=== PATIENT | female | born 1995 | race Caucasian/White ===

== ENCOUNTER 2019-04-22 20:27 | Emergency (ER) | payer MEDICAID ==
[2019-04-22 22:10] LABS: ALANINE AMINOTRANSFERASE 12 U/L (9-52); ALBUMIN 4.3 g/dL (3.5-5.0); ALKALINE PHOSPHATASE 43 U/L (38-126); ANION GAP 11 (5-19); ASPARTATE AMINO TRANSFERASE 19 U/L (14-36); BILIRUBIN,DIRECT 0.1 mg/dL (0.0-0.4); BILIRUBIN,TOTAL 1.4 mg/dL (0.2-1.3); BLOOD UREA NITROGEN 11 mg/dL (7-20); CALCIUM 10.1 mg/dL (8.4-10.2); CARBON DIOXIDE 23 mmol/L (22-30); CHLORIDE 102 mmol/L (98-107); GLUCOSE 114 mg/dL (75-110); POTASSIUM 3.6 mmol/L (3.6-5.0); SODIUM 135.6 mmol/L (137-145); TOTAL PROTEIN 7.9 g/dL (6.3-8.2)
[2019-04-22 22:22] LABS: APPEARANCE,URINE SLIGHTLY-CLOUDY; BILIRUBIN,URINE NEGATIVE (NEGATIVE); COLOR,URINE AMBER; GLUCOSE, URINE NEGATIVE (NEGATIVE); KETONES,URINE 80 mg/dL (NEGATIVE); LEUKOCYTE ESTERASE,URINE TRACE (NEGATIVE); NITRITE,URINE NEGATIVE (NEGATIVE); PROTEIN,URINE 30 mg/dL (NEGATIVE); URINE SPECIFIC GRAVITY 1.034
[2019-04-22 22:32] LABS: ABSOLUTE EOSINOPHILS # (AUTO) 0.1 10^3/uL (0.0-0.6); ABSOLUTE LYMPHOCYTES (AUTO) 1.5 10^3/uL (0.5-4.7); ABSOLUTE MONOCYTES (AUTO) 0.3 10^3/uL (0.1-1.4); ABSOLUTE NEUT (AUTO) 4.6 10^3/uL (1.7-8.2); BASOPHILS % (AUTO) 0.3 % (0-2); EOSINOPHILS % (AUTO) 1.6 % (0-6); HEMOGLOBIN 13.3 g/dL (12.0-15.5); LYMPHOCYTES % (AUTO) 23.3 % (13-45); MEAN CORPUSCULAR HEMOGLOBIN 28.7 pg (27.0-33.4); MEAN CORPUSCULAR VOLUME 82 fl (80-97); MONOCYTES % (AUTO) 4.5 % (3-13); PLATELET COUNT 195 10^3/uL (150-450); RED BLOOD COUNT 4.64 10^6/uL (3.72-5.28); RED CELL DISTRIBUTION WIDTH 13.5 % (11.5-14.0); SEGMENTED NEUTROPHILS % (AUTO) 70.3 % (42-78); TOTAL CELLS COUNTED % (AUTO) 100 %; WHITE BLOOD COUNT 6.5 10^3/uL (4.0-10.5)
[2019-04-23] MEDS ORDERED: ONDANSETRON HCL INJ/PF 4 MG/2 ML SDV IV ONE (02:10)
[2019-04-23 02:25] VITALS: BP 97/67
--- NOTE | 2019-04-23 06:03 | ER Document Report ---
Entered by JASPER WHATLEY SCRIBE 04/23/19 0215 Acting as scribe for:JEANE BHARDWAJ DO ED General - General Chief Complaint: Nausea/Vomiting/Diarrhea Stated Complaint: VOMITING Time Seen by Provider: 04/23/19 01:21 Mode of Arrival: Ambulatory Information source: Patient Notes: Patient is a 23-year-old female, approximately 10 weeks , presents to the emergency department complaining of nausea, vomiting and diarrhea onset 2 days ago. Patient states her primary concern is her nausea, further stating she has not been able to consume much food. She denies any fevers, hematemesis, blood in stool, abdominal pain, vaginal bleeding or vaginal discharge. Patient is G4, P3. TRAVEL OUTSIDE OF THE [place] IN LAST 30 DAYS: No Past Medical History - General Information source: Patient - Social History Smoking Status: Never Smoker Cigarette use (# per day): No Chew tobacco use (# tins/day): No Smoking Education Provided: No Frequency of alcohol use: None Drug Abuse: None Family History: Reviewed & Not Pertinent Patient has suicidal ideation: No Patient has homicidal ideation: No Past Surgical History: Reports: Hx Section - Immunizations Hx Diphtheria, Pertussis, Tetanus Vaccination: Yes Review of Systems - Review of Systems Constitutional: No symptoms reported EENT: No symptoms reported Cardiovascular: No symptoms reported Respiratory: No symptoms reported Gastrointestinal: See HPI, Diarrhea, Nausea, Vomiting Genitourinary: No symptoms reported Female Genitourinary: See HPI, Musculoskeletal: No symptoms reported Skin: No symptoms reported Hematologic/Lymphatic: No symptoms reported Neurological/Psychological: No symptoms reported -: Yes All other systems reviewed and negative Physical Exam - Vital signs Vitals: Temp Pulse Resp BP Pulse Ox 98.8 F 100 16 103/68 98 04/22/19 20:49 04/22/19 20:49 04/22/19 20:49 04/22/19 20:49 04/22/19 20:49 - Notes Notes: GENERAL: Alert, interacts well. No acute distress. HEAD: Normocephalic, atraumatic. EYES: Pupils equal, round, and reactive to light. Extraocular movements intact. ENT: Oral mucosa moist, tongue midline. NECK: Full range of motion. Supple. Trachea midline. LUNGS: Clear to auscultation bilaterally, no wheezes, rales, or rhonchi. No respiratory distress. HEART: Regular rate and rhythm. No murmurs, gallops, or rubs. ABDOMEN: Soft, non-tender. Non-distended. Bowel sounds present in all 4 quadrants. No guarding, rigidity, or rebound. EXTREMITIES: Moves all 4 extremities spontaneously. NEUROLOGICAL: Alert and oriented x3. Normal speech. PSYCH: Normal affect, normal mood. SKIN: Warm, dry, normal turgor. No rashes or lesions noted. Course - Re-evaluation Re-evalutation: 04/23/19 02:22 CBC unremarkable, CMP shows slightly low sodium 135.6 otherwise unremarkable, urinalysis shows 80 ketones and trace leukocyte esterase, no symptoms of urinary tract infection, this is been sent for culture. Patient is , is denying any abdominal pain or vaginal bleeding. I am not concerned for complications with at this time. Patient will be treated for vomiting, recommended to use Imodium at home if the diarrhea does not stop however she does not want to use any Imodium at this time. Discharge to home. - Vital Signs Vital signs: Temp Pulse Resp BP Pulse Ox 97.9 F 81 16 97/67 L 100 04/23/19 02:21 04/23/19 02:21 04/23/19 02:21 04/23/19 02:21 04/23/19 02:21 - Laboratory Result Diagrams: 04/22/19 22:15 04/22/19 21:20 Laboratory results interpreted by me: 04/22/19 04/22/19 21:20 21:20 Sodium 135.6 L Creatinine 0.46 L Glucose 114 H Total Bilirubin 1.4 H Urine Protein 30 H Urine Ketones 80 H Urine Urobilinogen 2.0 H Ur Leukocyte Esterase TRACE H Urine HCG, Qual POSITIVE H Discharge - Discharge Clinical Impression: Nausea vomiting and diarrhea, First trimester Condition: Stable Disposition: HOME, SELF-CARE Additional Instructions: Please drink plenty of fluids. You may use Imodium as directed on the package [id number]. Return to the emergency department for blood in your vomit, blood in your stool, fevers or abdominal pain. I have prescribed Zofran and Phenergan for nausea and vomiting. Prescriptions: Ondansetron [Zofran Odt 4 mg Tablet] 1 - 2 tab PO Q4H PRN #10 tab.rapdis PRN Reason: For Nausea/Vomiting Promethazine HCl [Phenergan 25 mg Tablet] 1 - 2 tab PO Q6H PRN #15 tablet PRN Reason: I personally performed the services described in the documentation, reviewed and edited the documentation which was dictated to the scribe in my presence, and it accurately records my words and actions.
== END 2019-04-23 02:37 | disposition home or self-care (01) ==
LOC: ER 20:27
DX: O21.9 Vomiting of pregnancy, unspecified (principal); R19.7 Diarrhea, unspecified; Z3A.10 10 weeks gestation of pregnancy
CPT/HCPCS: 99283; 96374; 36415; 87086; 85025; 81025; 80053; 81001; J2405